=== PATIENT | male | born 1990 | race American Indian/Alaskan Native ===

== ENCOUNTER 2017-04-28 02:19 | Emergency (ER) | payer OTHER ==
[2017-04-28 02:52] LABS: Urine Drugs of Abuse Note Disclamer
[2017-04-28 02:56] LABS: Basophils % (Auto) 0.3 % (0.0-1.8); Eosinophils % (Auto) 1.7 % (0.0-4.3); Hematocrit 44.4 % (35.5-45.6); Mean Corpuscular HGB Conc 34 % (32-34); Mean Corpuscular Hemoglobin 31 pg (28-32); Mean Corpuscular Volume 92 fl (84-94); Platelet Count 238 K/mm3 (140-440); Red Blood Count 4.81 M/mm3 (3.65-5.03); Red Cell Distribution Width 14.2 % (13.2-15.2); White Blood Count 8.3 K/mm3 (4.5-11.0)
[2017-04-28 03:09] LABS: Bilirubin,Urine NEG (Negative); Blood,Urine MOD (Negative); Ketones,Urine 20 mg/dL (Negative); Leukocyte Esterase,Urine NEG (Negative); Mucus,Urine FEW /HPF; Nitrite,Urine NEG (Negative); Protein,Urine <15 mg/dL mg/dL (Negative); Sperm,Urine 3+ /HPF (NP); Urobilinogen,Urine < 2.0 mg/dL (<2.0)
[2017-04-28 03:17] LABS: Anion Gap 22 mmol/L; BUN/Creatinine Ratio 20; Blood Urea Nitrogen 16 mg/dL (9-20); Calcium 9.6 mg/dL (8.4-10.2); Carbon Dioxide 22 mmol/L (22-30); Chloride 97.7 mmol/L (98-107); Glucose 87 mg/dL (75-100); Potassium 4.2 mmol/L (3.6-5.0); Sodium 137 mmol/L (137-145)
[2017-04-28] MEDS ORDERED: HALDOL IM PRN (07:01)
[2017-04-28] MEDS ORDERED: ATIVAN IM PRN (07:01)
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
[2017-04-28 07:30] LABS: Valproate 62.1 ug/mL (50-100)
[2017-04-28 07:31] LABS: Salicylate < 0.3 mg/dL (2.8-20.0)
[2017-04-28 07:46] LABS: Alanine Aminotransferase 11 units/L (7-56); Albumin 4.7 g/dL (3.9-5); Albumin/Globulin Ratio 1.5 %; Alkaline Phosphatase 62 units/L (35-129); Total Protein 7.8 g/dL (6.3-8.2)
[2017-04-28 07:49] LABS: Bilirubin,Direct < 0.2 mg/dL (0-0.2); Bilirubin,Indirect 0.1 mg/dL
[2017-04-28] MEDS ORDERED: GEODON IM PRN (07:50)
[2017-04-28] MEDS ORDERED: KETALAR ONE (08:33)
[2017-04-28] MEDS ORDERED: KETALAR IM ONE (09:00)
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
[2017-04-29 15:15] LABS: Alanine Aminotransferase 11 units/L (7-56); Alkaline Phosphatase 52 units/L (35-129); Amylase 42 units/L (27-131); Lipase 23 units/L (13-60)
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
[2017-04-30 18:39] VITALS: BP 132/74
== END 2017-04-30 18:38 ==
LOC: EEVIPCON 02:19 → ED 02:19
DX: R68.84 Jaw pain (principal); F20.9 Schizophrenia, unspecified; F17.200 Nicotine dependence, unspecified, uncomplicated
CPT/HCPCS: 36415; 70450; 70486; 72125; 74176; 80048; 80074; 80164; 80307; 81001; 82150; 82550; 83690; 84075; 84450; 84460; 85025; 96372; 99285; G0480; J2060; J3486; 80320; J1630

== ENCOUNTER 2018-02-01 14:30 | Emergency (ER) | payer SELFPAY ==
[2018-02-01 14:41] VITALS: BP 127/82
--- NOTE | 2018-02-01 17:10 | Emergency Department Report ---
ED ENT HPI - General Chief complaint: Dental/Oral Stated complaint: TOOTHACHE/CHEST PAIN Time Seen by Provider: 02/01/18 16:37 Source: patient Mode of arrival: Ambulatory Limitations: No Limitations - History of Present Illness Initial comments: This is a 27-year-old -[place] male presents with a toothache on the right upper side for 3-4. Patient states he took his children's mother's Percocet and amoxicillin twice with no improvement of symptoms. Patient states he attempted to make an appointment with dentist but could not be seen due to insurance. Denies sore throat, difficulty swallowing, fever, and drooling. MD complaint: tooth pain Onset/Timin -: days(s) Location: tooth # (1) 1 - Dental decay Severity: severe Severity scale (0 -10): 10 Quality: aching Consistency: constant Improves with: none Worsens with: eating Context- Dental: history of dental caries, poor dental care Associated Symptoms: gum swelling, toothache. denies: fever, cough, pain with swallowing, sore throat, tinnitus, hearing loss, discharge from ear, rhinorrhea - Related Data Previous Rx's Medication Instructions Recorded Last Taken Type LORazepam [Ativan] 1 mg PO TID PRN 5 Days tablet 11/28/13 Unknown Rx Dicyclomine [Bentyl] 10 mg PO Q6H PRN #10 capsule 07/25/16 Unknown Rx Clindamycin [Clindamycin CAP] 300 mg PO Q8H 7 Days #21 cap 02/01/18 Unknown Rx Naproxen [Naprosyn] 500 mg PO BID #14 tablet 02/01/18 Unknown Rx Allergies Allergy/AdvReac Type Severity Reaction Status Date / Time No Known Allergies Allergy Verified 08/14/15 04:32 ED Dental HPI - General Chief complaint: Dental/Oral Stated complaint: TOOTHACHE/CHEST PAIN Time Seen by Provider: 02/01/18 16:37 Source: patient Mode of arrival: Ambulatory Limitations: No Limitations - Related Data Previous Rx's Medication Instructions Recorded Last Taken Type LORazepam [Ativan] 1 mg PO TID PRN 5 Days tablet 11/28/13 Unknown Rx Dicyclomine [Bentyl] 10 mg PO Q6H PRN #10 capsule 07/25/16 Unknown Rx Clindamycin [Clindamycin CAP] 300 mg PO Q8H 7 Days #21 cap 02/01/18 Unknown Rx Naproxen [Naprosyn] 500 mg PO BID #14 tablet 02/01/18 Unknown Rx Allergies Allergy/AdvReac Type Severity Reaction Status Date / Time No Known Allergies Allergy Verified 08/14/15 04:32 ED Review of Systems ROS: Stated complaint: TOOTHACHE/CHEST PAIN Other details as noted in HPI Constitutional: denies: chills, fever ENT: dental pain (right upper abdominal pain). denies: ear pain, throat pain, hearing loss, epistaxis, congestion Respiratory: denies: cough, shortness of breath, wheezing Cardiovascular: denies: chest pain, palpitations Gastrointestinal: denies: abdominal pain, nausea, diarrhea Skin: denies: rash, lesions Neurological: denies: headache, weakness, paresthesias Psychiatric: denies: anxiety, depression ED Past Medical Hx - Past Medical History Previous Medical History?: Yes Hx Psychiatric Treatment: Yes (schizophrenia) Additional medical history: Gastritis - Surgical History Past Surgical History?: Yes Additional Surgical History: left leg - Social History Smoking Status: Current Every Day Smoker Substance Use Type: Alcohol - Medications Home Medications: Home Medications Medication Instructions Recorded Confirmed Last Taken Type LORazepam [Ativan] 1 mg PO TID PRN 5 Days tablet 11/28/13 04/28/17 Unknown Rx Dicyclomine [Bentyl] 10 mg PO Q6H PRN #10 capsule 07/25/16 04/28/17 Unknown Rx Clindamycin [Clindamycin CAP] 300 mg PO Q8H 7 Days #21 cap 02/01/18 Unknown Rx Naproxen [Naprosyn] 500 mg PO BID #14 tablet 02/01/18 Unknown Rx ED Physical Exam - General Limitations: No Limitations General appearance: alert, in no apparent distress - ENT ENT exam: Present: mucous membranes moist, other (dental caries #1, no surrounding mucosal swelling) - Respiratory Respiratory exam: Present: normal lung sounds bilaterally. Absent: respiratory distress - Cardiovascular Cardiovascular Exam: Present: regular rate, normal rhythm. Absent: systolic murmur, diastolic murmur, rubs, gallop - GI/Abdominal GI/Abdominal exam: Present: soft, normal bowel sounds - Neurological Exam Neurological exam: Present: alert, oriented X3 - Psychiatric Psychiatric exam: Present: normal affect, normal mood - Skin Skin exam: Present: warm, dry, intact, normal color. Absent: rash ED Course Vital Signs 02/01/18 14:36 Temperature 98.8 F Pulse Rate 92 H Respiratory 18 Rate Blood Pressure 127/82 O2 Sat by Pulse 100 Oximetry ED Medical Decision Making - Medical Decision Making Patient is stable and was examined by me. Given toradol 30 mg IM once in ER. Susceptible of dental caries. Discharged home with clindamycin and naproxen. Discussed plan with patient. He agreed with ER plan. Follow up with dentist from referrals. Critical care attestation.: If time is entered above; I have spent that time in minutes in the direct care of this critically ill patient, excluding procedure time. ED Disposition Clinical Impression: Dental caries, Toothache Disposition: - TO HOME OR SELFCARE Is pt being admited?: No Does the pt Need Aspirin: No Condition: Stable Instructions: Dental Caries (ED), Toothache (ED) Additional Instructions: Complete all antibiotics as prescribed. Follow up with Dentist in 24-72 hours. Prescriptions: Clindamycin [Clindamycin CAP] 300 mg PO Q8H 7 Days #21 cap Naproxen [Naprosyn] 500 mg PO BID #14 tablet Referrals: [facility] [Outside] - 3-5 Days [facility] [Outside] - 3-5 Days [facility] [Outside] - 3-5 Days [facility] [Outside] - 3-5 Days Forms: Work/School Release Form(ED) Time of Disposition: 17:22 Print Language: SYRIAN
[2018-02-01] MEDS ORDERED: TORADOL IM ONE (17:17)
== END 2018-02-01 17:29 | disposition home or self-care (01) ==
LOC: ED 14:30
DX: K02.9 Dental caries, unspecified (principal); F20.9 Schizophrenia, unspecified; F17.200 Nicotine dependence, unspecified, uncomplicated
CPT/HCPCS: 96372; 99282; J1885